=== PATIENT | female | born 2000 | race Hispanic/Latino ===

== ENCOUNTER 2020-11-15 01:44 | Emergency (ER) | payer BC, SELFPAY ==
[2020-11-15] MEDS ORDERED: Ondansetron PF 4 MG/2 ML Vial ONE (05:05)
== END 2020-11-15 06:15 | disposition home or self-care (01) ==
LOC: CSHERS 01:44
DX: F10.129 Alcohol abuse with intoxication, unspecified (principal); R41.82 Altered mental status, unspecified
CPT/HCPCS: 93005; 96374; J2405